=== PATIENT | male | born 1990 | race Caucasian/White ===

== ENCOUNTER 2017-04-04 05:43 | Emergency (ER) | payer SELFPAY ==
[~2017-04-04] VITALS: Ht 172.7 cm; Wt 106.6 kg
[~2017-04-04 05:43] MED LIST: CIPR500T4 PO; CIPR500T78 PO; CPR500T; HYDR-1231 PO; HYDR-3583 PO; HYDR-757 PO; HYDR1TAB; METR500T PO; METR500T21 PO; MTR500T PO; MUPI22OI TP; SULF1TAB38 PO; TRAM50TA2 PO
[2017-04-04] MEDS ORDERED: LIDOCAINE 1% INJ 20 ML (XYLOCAINE) VIAL INJ STA (06:39)
[2017-04-04] MEDS ORDERED: HYDROcodone/APAP 7.5 MG/325 MG (LORTAB, LORCET PLUS) TABLET PO ONE (07:06)
[2017-04-04] MEDS ORDERED: HYDROcodone/APAP 7.5 MG/325 MG (LORTAB, LORCET PLUS) TABLET PO STA (07:11)
--- NOTE | 2017-04-04 07:49 | ED Integumentary General ---
General Chief Complaint: Skin/Wound Problems Stated Complaint: ABSCESS BY [facility] Nursing Triage Note: PT TO ED 5 W/ FRIEND FOR C/O POSS PILONIDAL CYST. REPORTS HAS HAD IT DRAINED BEFORE BUT BECAME PAINFUL AGAIN THIS AM AFTER MIDNIGHT. ALSO REPORTS TOOK SOME LEFTOVER ABX TO KEEP IT FROM GETTING WORSE Source: patient Exam Limitations: no limitations History of Present Illness Time seen by provider: 07:00 Initial Comments Here with report of possible pilonidal cyst. States that is been going on for the last week. Has history of multiple IND to the same area due to pilonidal cyst. He did start some antibiotics but is not sure what they were in an effort to make it better. This did not work. Presents for increasing pain. Timing/Duration: week, getting worse Severity: moderate Location: genitalia (upper buttocks) Associated Symptoms: change in skin texture, edema, No fever, swelling/mass/ lumps Allergies and Home Medications Allergies Coded Allergies: No Known Drug Allergies (Unverified , 05/06/13) Home Medications Ciprofloxacin HCl 500 Mg Tablet, 500 MG PO BID, #20 Ref 0 Prescribed by: SOCO OVALLE on 04/15/151851 Metronidazole 500 Mg Tablet, 500 MG PO BID, #20 Ref 0 Prescribed by: SOCO OVALLE on 04/15/151851 Tramadol HCl 50 Mg Tablet, 50 MG PO Q4H PRN for PAIN, #20 Ref 0 Prescribed by: SOCO OVALLE on 04/15/151851 Constitutional: see HPI, No chills, No fever Respiratory: no symptoms reported Cardiovascular: no symptoms reported Gastrointestinal: no symptoms reported Skin: see HPI, change in color, lesions Past Qijtyvy-Alwduh-Bmfsef Hx Patient Social History Alcohol Use: Occasionally Uses Recreational Drug Use: No Smoking Status: Current Everyday Smoker Type Used: Cigarettes Recent Foreign Travel: No Contact w/Someone Who Travel: No Recent Infectious Disease Expo: No Recent Hopitalizations: No Physical Abuse: No Sexual Abuse: No Mistreated: No Fear: No Immunizations Up To Date Tetanus Booster (TDap): Less than 5yrs Seasonal Allergies Seasonal Allergies: No Surgeries History of Surgeries: No Respiratory History of Respiratory Disorde: No Cardiovascular History of Cardiac Disorders: No Neurological History of Neurological Disord: No Reproductive System Hx Reproductive Disorders: No Sexually Transmitted Disease: No HIV/AIDS: No Gastrointestinal History of Gastrointestinal Di: No Musculoskeletal History of Musculoskeletal Dis: No Endocrine History of Endocrine Disorders: No Cancer History of Cancer: No Psychosocial History of Psychiatric Problem: No Suicide Risk Score: 0 Integumentary History of Skin or Integumenta: Yes (infected pilonidal cyst) Blood Transfusions History of Blood Disorders: No Adverse Reaction to a Blood Tr: No Reviewed Nursing Assessment Reviewed/Agree w Nursing PMH: Yes Family Medical History Significant Family History: No Pertinent Family Hx Physical Exam Vital Signs Vital Sign - Last 12Hours 04/04/17 05:56 Temp 98.0 Pulse 113 Resp 20 B/P (MAP) 131/91 Pulse Ox 99 O2 Delivery Room Air Capillary Refill : Less Than 3 Seconds General Appearance: WD/WN, no apparent distress Cardiovascular: regular rate, rhythm, no murmur Respiratory: lungs clear, normal breath sounds Skin: warm/dry Skin Problem Location: other (buttocks centrally) Skin Problem Character: abscess (3 x 3 cm fluctuant area), erythema (5 x 8 cm surrounding fluctuance), warm I&D : Blade Size: 11 I & D Procedure: betadine prep Packing/Drain: Idoform 1/2 Progress Anesthetized with 20 mL of 1 percent lidocaine local infiltration around wound. Very difficult to completely anesthetize due to size. Ultimately able to place a tooth 0.5 cm incision over the abscess cavity and drained a large amount of purulent foul-smelling drainage. Culture obtained. Packed with half- inch iodoform. Covered with dressing. Much better after I&D. Progress/Results/Core Measures Results/Orders My Orders Orders - DARIA MOHR MD Wound Culture (04/04/17 06:39) Lidocaine 1% Injection (Xylocaine 1% Inj (04/04/17 06:39) Hydrocodone/Apap 7.5/325 Tab (Lortab 7. (04/04/17 07:11) Hydrocodone/Apap 7.5/325 Tab (Lortab 7. (04/04/17 07:06) Vital Signs/I&O Vital Sign - Last 12Hours 04/04/17 05:56 Temp 98.0 Pulse 113 Resp 20 B/P (MAP) 131/91 Pulse Ox 99 O2 Delivery Room Air Blood Pressure Mean: 104 Progress Note : Progress Note Seen and evaluated. Hydrocodone 7.5/325 mg one tab by mouth given. Anesthetized via local 1 percent lidocaine. I&D and packing with iodoform. Discharged home with return precautions. Patient verbalize understanding instructions and agreement with plan. Departure Impression Impression: Primary Impression: Pilonidal abscess Disposition: HOME, SELF-CARE Condition: Stable Departure-Patient Inst. Decision time for Depature: 07:48 Referrals: JASON PERRIN DO NO,LOCAL PHYSICIAN (PCP) Primary Care Physician Patient Instructions: Abscess Incision and Drainage (DC), Pilonidal Cyst (DC) Add. Discharge Instructions: All discharge instructions reviewed with patient and/or family. Voiced understanding. Take medications as directed. Return in 2 days for packing removal. Follow-up with Dr. Perrin or a surgeon of your choice for further evaluation and surgical removal of your pilonidal cyst. These will continue to come back as abscesses until you have them surgically removed. Return for worse pain, fever, vomiting , weakness, breathing problems or other concerns as needed. Scripts Metronidazole (Metronidazole) 500 Mg Tablet 500 MG PO BID, #14 TAB 0 Refills Prov: DARIA MOHR MD 04/04/17 Hydrocodone/Acetaminophen (Hydrocodon-Acetaminoph 7.5-325) 1 Each Tablet 1 EACH PO Q6H, #12 TAB 0 Refills Prov: DARIA MOHR MD 04/04/17 Ciprofloxacin HCl (Ciprofloxacin HCl) 500 Mg Tablet 500 MG PO BID, #14 TAB Prov: DARIA MOHR MD 04/04/17 Work/School Note: Work Release Form Date Seen in the Emergency Department: Apr 04, 2017 Return to Work: Apr 10, 2017 Restrictions: No Restrictions DARIA MOHR MD Apr 04, 2017 07:49
[2017-04-04] MEDS ORDERED: METR500T21 PO (07:50)
[2017-04-04] MEDS ORDERED: CIPR500T4 PO (07:50)
[2017-04-04] MEDS ORDERED: HYDR-3816 PO (07:50)
[2017-04-04 08:18] VITALS: BP 125/72
== END 2017-04-04 08:21 | disposition home or self-care (01) ==
LOC: EDUNIT# 05:43 → ER 05:46
DX: L05.01 Pilonidal cyst with abscess (principal); F17.210 Nicotine dependence, cigarettes, uncomplicated
CPT/HCPCS: 87070; 87205; 99283